=== PATIENT | female | born 1975 | race Caucasian/White ===

== ENCOUNTER 2016-05-28 06:01 | Emergency (ER) | payer OTHER ==
--- NOTE | 2016-05-28 07:09 | ED CLINICAL REPORT ---
Clinical Report - Physicians/Mid Levels [facility] [address] [place] [address] 05/28/2016 6:02 Patient: RALPH LIVINGSTON Arrived- By private vehicle. Historian- patient. HISTORY OF PRESENT ILLNESS Chief Complaint: (abscess to both shoulders). This started past several days and is still present (worsening). It was gradual in onset and has been constant but is not gone now. It is described as painful. It has been located on the right upper extremity and left upper extremity. Cause has been identified (Hx recreational drug use). Similar symptoms previously: Many times. Recent medical care: Not recently seen/assessed. REVIEW OF SYSTEMS No fever, chills, difficulty breathing or chest pain. All systems otherwise negative, except as recorded above. PAST HISTORY See nurses notes. Tetanus immunization status is up-to-date. Problems: no known problems. Additional Surgeries: no known surgeries. Medications: Tylenol Oral 500mg, 4x a day as needed. Ibuprofen Oral 600 mg, 4x a day. Allergies: No Known Drug Allergy. SOCIAL HISTORY Smoker- current status unknown. History of drug use. No alcohol use. Is a local resident. ADDITIONAL NOTES The nursing notes have been reviewed. PHYSICAL EXAM Vital Signs: 05/28/2016 06:21 BP: 133/77. HR: 75. RR: 16. O2 saturation: 100%. Temp: 98.3 F. Pain level now: 8/10. Blood pressure normal. Oxygen saturation normal. Appearance: Alert. Oriented X3. No acute distress. Eyes: Pupils equal, round and reactive to light. Conjunctivae and eyelids normal. ENT: Ears normal. Nose normal. Pharynx normal. Neck: Neck supple. CVS: Normal heart rate and rhythm. Heart sounds normal. Respiratory: No respiratory distress. Breath sounds normal. Chest nontender. Abdomen: Nontender. No organomegaly. Skin: (bilateral abscesses to the shoulders. Right abscess it has a 1 cm area of fluctuance and area of induration that measures approximately 6 cm at the widest diameter. Overlying area of cellulitis. Does not extend more than 3 cm past the border of induration. There is also a deeper abscess that is located proximal to this one. Appears to be rather small at approximately 2-3 cm in diameter however it is difficult to palpate because of the depth and likely early nature of the abscess. The left shoulder has a drained abscess with overlying cellulitis. This is outlined with a skin pen. The largest measured diameter is approximately 8 cm. It is irregular shaped. There is no streaking. In both shoulders or no crepitus. No other abnormalities noted. Patient is neurovascularly intact bilaterally. Palpable radial pulses are 2+ and symmetrical to each side. Compartments are soft. No bony abnormalities. No lymphadenopathy noted in the neck. No neck tenderness or difficulty with range of motion.). Extremities: Normal external inspection. Extremities nontender. PROGRESS AND PROCEDURES Incision & Drainage of Abscess: The risks of the procedure, benefits and alternatives were explained. Anesthesia provided using 1% lidocaine with epi. Skin cleansed with Betadine. The abscess was incised with a #11 surgical blade. A large amount of pus was drained. Cavity was irrigated with saline and packed with gauze. A dressing was applied. Estimated blood loss: 3 mL. ( no compilations. Patient tolerated procedure well.). Course of Care: The patient is a pleasant 40-year-old female with past medical history significant for IV drug u No evidence of necrotizing fasciitis. No neurovascular compromise. Verbally discussed with patient treatment plan. Patient is agreeable to bedside incision and drainage. Please see procedure note for further details. Patient does not have any signs of systemic involvement. And buttocks provided for cellulitis. Patient tolerated procedure well. No acute abnormalities noted. Patient instructed to have her wound rechecked in 24-48 hours. No other abnormalities noted. Patient continues to be nontoxic and in no acute distress. I discussed with the patient workup, diagnosis, home care, follow-up, and return precautions. All questions have been answered. The patient expressed understanding of these instructions and was agreeable to them. Do not feel patient needs to be admitted to the hospital require further emergency department workup/evaluation. Disposition: Discharged. Condition: good. CLINICAL IMPRESSION 05/28/2016 06:21 BP: 133/77. HR: 75. RR: 16. O2 saturation: 100%. Temp: 98.3 F. Pain level now: 8/10. Blood pressure normal. Oxygen saturation normal. Multiple deep abscesses to the right upper extremity and left upper extremity. Cellulitis of the right shoulder and left shoulder. INSTRUCTIONS (Wound needs to be rechecked in 24 - 48 hours). Warnings: GENERAL WARNINGS: Return or contact your physician immediately if your condition worsens or changes unexpectedly, if not improving as expected, or if other problems arise. Specifically return if pain, vomiting, bleeding, breathing difficulty or fever. Your Current Medications: CONTINUE TAKING THE FOLLOWING MEDICATIONS: Ibuprofen Oral : 600 mg 4x a day. Tylenol Oral : 500mg 4x a day, prn. Prescription Medications: Bactrim DS 800 mg / 160 mg: take 1 tablet orally every 12 hours for 10 days. Substitution is permissible. (Disp 20 tabs) Keflex 500 mg: take 1 capsule orally every 8 hours for 10 days. No refill. Substitution is permissible. (Disp 30 caps) Follow-up: Return to the emergency department as needed. Follow up with your doctor in two days. Reason for referral: recheck today's concerns. Summary of care provided to patient via paper. Screening today revealed the patient's blood pressure to be in the normal range. The patient should follow up with a primary care provider for blood pressure management. Understanding of the discharge instructions verbalized by patient. [facility] with: [facility], , , [facility], [address] [place] [address] [id number], [place], [id number] Follow up in two days. Reason for referral: recheck today's concerns. Summary of care provided to patient via paper. (Electronically signed by Jerome Turner Dr. 06/01/2016 11:33)
--- NOTE | 2016-05-28 07:09 | ED ORDER SUMMARY ---
..... Patient: RALPH LIVINGSTON OrderSheet [facility] VisitID: [id number] [address] [place] [address] 40y, F Registration Date/Time: 05/28/2016 ORDER SHEET Weight: 68.0 kg (stated) Allergies: No Known Drug Allergy GENERAL ORDERS: MEDICATION ORDERS: Keflex PO 500 mg (NOW) (07:05/28/2016 Mark Grossman) (7:13 LWhalen R.N.) Bactrim DS PO (Tablet 800-160 mg) 1 tab (NOW) (07:05/28/2016 Mark Grossman) (7:13 LWhalshannon R.N.) IV FLUIDS: ORDER SHEET NOTES: [Electronically signed by Therese Guthrie R.N. (18:29 05/29/2016)] [Electronically signed by Jerome Turner Dr. (11:33 06/01/2016)] [Electronically locked/signed by Therese Guthrie R.N. (18:29 05/29/2016)]
--- NOTE | 2016-05-28 07:09 | ED ORDER SUMMARY ---
..... Patient: RALPH LIVINGSTON OrderSheet [facility] VisitID: [id number] [address] [place] [address] 40y, F Registration Date/Time: 05/28/2016 ORDER SHEET Weight: 68.0 kg (stated) Allergies: No Known Drug Allergy GENERAL ORDERS: MEDICATION ORDERS: Keflex PO 500 mg (NOW) (07:05/28/2016 Mark Grossman) (7:13 LWhalen R.N.) Bactrim DS PO (Tablet 800-160 mg) 1 tab (NOW) (07:05/28/2016 Mark Grossman) (7:13 LWhalshannon R.N.) IV FLUIDS: ORDER SHEET NOTES: [Electronically signed by Therese Guthrie R.N. (18:29 05/29/2016)] [Electronically signed by Jerome Turner Dr. (11:33 06/01/2016)] [Electronically locked/signed by Therese Guthrie R.N. (18:29 05/29/2016)]
--- NOTE | 2016-05-28 07:09 | ED NURSING NOTES ---
Clinical Report - Nurses Merged With [facility] [address] [place] [address] 05/28/2016 6:02 Patient: RALPH LIVINGSTON TRIAGE Triage time 06:22. Acuity: LEVEL 4. Chief Complaint: Multiple abscesses. 06:27. Alert. SEPSIS SCREEN: Sepsis Screen. Negative (no infection suspected/documented). --06:27 Juan Luis Tiwari R.N. 06:21 05/28/16. BP: 133/77. HR: 75. RR: 16. O2 saturation: 100% on room air. Temp: 98.3 F. Pain level now: 11/17. --06:27 Juan Luis Tiwari R.N. Weight: 68 kg stated. Height/Length: 67.5 inches Per Patient. BMI: 23.1. --06:26 Juan Luis Tiwrai R.N. Medications Ibuprofen Oral 600 mg, 4x a day. --06:24 Juan Luis Tiwari R.N. Tylenol Oral 500mg, 4x a day as needed. --06:24 Juan Luis Tiwari R.N. Medication/allergy information source: the patient. --06:27 Juan Luis Tiwari R.N. Allergies No Known Drug Allergy. --06:24 Juan Luis Tiwari R.N. History Arrived by private vehicle. Historian: patient. Accompanied by friend. Primary physician ([facility]). Reported as located on the right shoulder and left shoulder. Onset. (3 - 4 days ago). Treatment PROFESSOR OF COUNSELING: None. PAST MEDICAL HX: Immunizations: up-to-date. Last normal menstrual period- 2 weeks ago. SOCIAL HX: Current every day heavy tobacco smoker- 1 pack per day. Occasional alcohol use. History of drug use: heroin. (daily, states " I quit 2 days ago"). No infectious disease exposure. ABUSE ASSESSMENT: No report of abuse. FALL RISK ASSESSMENT: Fall risk assessment completed. No fall risk identified. NUTRITIONAL RISK ASSESSMENT: The nutritional risk assessment revealed no deficiencies. FUNCTIONAL ASSESSMENT: Functional assessment: no impairments noted. LEARNING NEEDS ASSESSMENT: The learning needs assessment revealed no barriers. SKIN INTEGRITY ASSESSMENT: Skin integrity risk assessment completed. No skin integrity risk identified. --06:27 Juan Luis Tiwari R.N. PROBLEMS: no known problems. ADDITIONAL SURGERIES: no known surgeries. Interventions ID band on patient. To treatment room. --06:27 Juan Luis Tiwari R.N. PHYSICAL ASSESSMENT 06:29. Ambulatory to room. Patient gowned. GENERAL / NEURO / PSYCH: Alert. Oriented X 4. HEENT: Mucous membranes are pink. RESPIRATORY: Respirations not labored. SKIN: Skin is warm and dry. Multiple skin lesions on the right shoulder and left shoulder. --06:29 Juan Luis Tiwari R.N. NURSING PROGRESS NOTES 06:29. Head of bed elevated. Two patient identifiers checked. Call light placed in reach. Bed placed in lowest position. Brakes of bed on. Patient ready for evaluation- chart flagged. --06:29 Juan Luis Tiwari R.N. 07:13 05/28/2016 Keflex (Cephalexin) PO Capsules 500 mg given. Allergies verified and confirmed 5 rights. --07:13 Therese Guthrie R.N. 07:13 05/28/2016 Bactrim DS (Sulfamethoxazole-TMP DS) PO Tablets 1 tab given. Allergies verified and confirmed 5 rights. --07:13 Therese Guthrie R.N. DISPOSITION / DISCHARGE Departure time: 07:17 May 28 2016. Condition at departure: improved. No learning barriers present. Discharge instructions provided and reviewed with the patient. Reviewed warnings. Reviewed medication(s). Treatments reviewed. Reviewed referrals. Patient verbalized understanding. Written instructions provided in Botswanan. The patient was discharged home and accompanied by opal miner. She left the Emergency Department ambulatory and via private vehicle. Peace Officer driving. --07:17 Therese Guthrie R.N. 07:16 05/28/16. BP: 129/76. HR: 66. RR: 18. O2 saturation: 100%. Temp: 98.6 F. Pain level now 4/10. --07:17 Therese Guthrie R.N. Locked/Released at 05/29/2016 18:29 by Therese Guthrie R.N.
--- NOTE | 2016-05-28 07:09 | ED NURSING NOTES ---
Clinical Report - Nurses [facility] [address] [place] [address] 05/28/2016 6:02 Patient: RALPH LIVINGSTON TRIAGE Triage time 06:22. Acuity: LEVEL 4. Chief Complaint: Multiple abscesses. 06:27. Alert. SEPSIS SCREEN: Sepsis Screen. Negative (no infection suspected/documented). --06:27 Juan Luis Tiwari R.N. 06:21 05/28/16. BP: 133/77. HR: 75. RR: 16. O2 saturation: 100% on room air. Temp: 98.3 F. Pain level now: 11/17. --06:27 Juan Luis Tiwari R.N. Weight: 68 kg stated. Height/Length: 67.5 inches Per Patient. BMI: 23.1. --06:26 Juan Luis Tiwari R.N. Medications Ibuprofen Oral 600 mg, 4x a day. --06:24 Juan Luis Tiwari R.N. Tylenol Oral 500mg, 4x a day as needed. --06:24 Juan Luis Tiwari R.N. Medication/allergy information source: the patient. --06:27 Juan Luis Tiwari R.N. Allergies No Known Drug Allergy. --06:24 Juan Luis Tiwari R.N. History Arrived by private vehicle. Historian: patient. Accompanied by friend. Primary physician ([facility]). Reported as located on the right shoulder and left shoulder. Onset. (3 - 4 days ago). Treatment CERTIFIED INDUSTRIAL HYGIENIST: None. PAST MEDICAL HX: Immunizations: up-to-date. Last normal menstrual period- 2 weeks ago. SOCIAL HX: Current every day heavy tobacco smoker- 1 pack per day. Occasional alcohol use. History of drug use: heroin. (daily, states " I quit 2 days ago"). No infectious disease exposure. ABUSE ASSESSMENT: No report of abuse. FALL RISK ASSESSMENT: Fall risk assessment completed. No fall risk identified. NUTRITIONAL RISK ASSESSMENT: The nutritional risk assessment revealed no deficiencies. FUNCTIONAL ASSESSMENT: Functional assessment: no impairments noted. LEARNING NEEDS ASSESSMENT: The learning needs assessment revealed no barriers. SKIN INTEGRITY ASSESSMENT: Skin integrity risk assessment completed. No skin integrity risk identified. --06:27 Juan Luis Tiwari R.N. PROBLEMS: no known problems. ADDITIONAL SURGERIES: no known surgeries. Interventions ID band on patient. To treatment room. --06:27 Juan Luis Tiwari R.N. PHYSICAL ASSESSMENT 06:29. Ambulatory to room. Patient gowned. GENERAL / NEURO / PSYCH: Alert. Oriented X 4. HEENT: Mucous membranes are pink. RESPIRATORY: Respirations not labored. SKIN: Skin is warm and dry. Multiple skin lesions on the right shoulder and left shoulder. --06:29 Juan Luis Tiwari R.N. NURSING PROGRESS NOTES 06:29. Head of bed elevated. Two patient identifiers checked. Call light placed in reach. Bed placed in lowest position. Brakes of bed on. Patient ready for evaluation- chart flagged. --06:29 Juan Luis Tiwari R.N. 07:13 05/28/2016 Keflex (Cephalexin) PO Capsules 500 mg given. Allergies verified and confirmed 5 rights. --07:13 Therese Guthrie R.N. 07:13 05/28/2016 Bactrim DS (Sulfamethoxazole-TMP DS) PO Tablets 1 tab given. Allergies verified and confirmed 5 rights. --07:13 Therese Guthrie R.N. DISPOSITION / DISCHARGE Departure time: 07:17 May 28 2016. Condition at departure: improved. No learning barriers present. Discharge instructions provided and reviewed with the patient. Reviewed warnings. Reviewed medication(s). Treatments reviewed. Reviewed referrals. Patient verbalized understanding. Written instructions provided in [place]err[place]ian. The patient was discharged home and accompanied by cylinder checker. She left the Emergency Department ambulatory and via private vehicle. Cmm Technician driving. --07:17 Therese Guthrie R.N. 07:16 05/28/16. BP: 129/76. HR: 66. RR: 18. O2 saturation: 100%. Temp: 98.6 F. Pain level now 4/10. --07:17 Therese Guthrie R.N. Locked/Released at 05/29/2016 18:29 by Therese Guthrie R.N.
--- NOTE | 2016-06-01 11:33 | ED DISCHARGE INSTRUCTIONS ---
Patient: RALPH LIVINGSTON General Instructions [facility] VisitID: [id number] [address] [place], [place] [id number], F Registration Date/Time: 05/28/2016 05/28/2016 06:21 BP: 133/77. HR: 75. RR: 16. O2 saturation: 100%. Temp: 98.3 F. Pain level now: 8/10. Blood pressure normal. Oxygen saturation normal. Multiple deep abscesses to the right upper extremity and left upper extremity. Cellulitis of the right shoulder and left shoulder. INSTRUCTIONS (Wound needs to be rechecked in 24 - 48 hours). Warnings: GENERAL WARNINGS: Return or contact your physician immediately if your condition worsens or changes unexpectedly, if not improving as expected, or if other problems arise. Specifically return if pain, vomiting, bleeding, breathing difficulty or fever. Your Current Medications: CONTINUE TAKING THE FOLLOWING MEDICATIONS: Ibuprofen Oral : 600 mg 4x a day. Tylenol Oral : 500mg 4x a day, prn. Prescription Medications: Bactrim DS 800 mg / 160 mg: take 1 tablet orally every 12 hours for 10 days. Substitution is permissible. (Disp 20 tabs) Keflex 500 mg: take 1 capsule orally every 8 hours for 10 days. No refill. Substitution is permissible. (Disp 30 caps) Follow-up: Return to the emergency department as needed. Follow up with your doctor in two days. Reason for referral: recheck today's concerns. Summary of care provided to patient via paper. Screening today revealed the patient's blood pressure to be in the normal range. The patient should follow up with a primary care provider for blood pressure management. Understanding of the discharge instructions verbalized by patient. Follow-up with: [facility], , , [facility], [address] [place] [address] [id number], [place], [id number] Follow up in two days. Reason for referral: recheck today's concerns. Summary of care provided to patient via paper. ADDITIONAL INFORMATION Abscess [Incision & Drainage] An abscess (sometimes called a boil) occurs when bacteria get trapped under the skin and begin to grow. Pus forms inside the abscess as the body responds to the bacteria. An abscess can occur with an insect bite, ingrown hair, blocked oil gland, pimple, cyst, or puncture wound. Treatment of your abscess has required an incision to drain the pus. If the abscess pocket was large, a gauze packing may have been inserted. This will need to be removed and possibly replaced on your next visit. Antibiotics are not required in the treatment of a simple abscess, unless the infection is spreading into the skin around the wound (known as cellulitis). Healing of the wound will take about one to two weeks depending on the size of the abscess. Healthy tissue will grow from the bottom and sides of the opening until it seals over. Home Care: The wound may drain for the first two days. Cover the wound with a clean dry dressing. If the dressing becomes soaked with blood or pus, change it. If a gauze packing was placed inside the abscess cavity, you may be advised to remove it yourself. You may do this in the shower. Once the packing is removed, you should wash the area in the shower or bath 3 to 4 times a day, until the skin opening has closed. If you were prescribed antibiotics, take them as directed until they are all gone. You may use acetaminophen (Tylenol) or ibuprofen (Motrin, Advil) to control pain, unless another pain medicine was prescribed. [ NOTE: If you have liver disease or ever had a stomach ulcer, talk with your doctor before using these medicines.] Follow Up with your doctor as advised by our staff. If a gauze packing was inserted in your wound, it should be removed in 1-2 days. Check your wound every day for the signs of worsening infection listed below. Get Prompt Medical Attention if any of the following occur: Increasing redness or swelling Red streaks in the skin leading away from the wound Increasing local pain or swelling Continued pus draining from the wound two days after treatment Fever of 100.4F (38C) or higher, or as directed by your healthcare provider Cellulitis You have an infection of the skin known as cellulitis. This usually starts with a scrape, cut, insect bite, blister or other opening in the skin which becomes infected. This is a serious condition. It must be watched closely to be sure the infection is not spreading. With antibiotic treatment, the size of the red area will gradually shrink in size until the skin returns to normal. This will take 7-10 days. The red area should never increase in size once the antibiotic medicine has been started. Occasionally, an infection will be resistant to one antibiotic and another one will have to be used. Home Care: 1) Limit the use of the affected part, since excess movement can cause the infection to spread. 2) If the infection is on your leg, walk as little as possible during the first few days of the treatment. Keep your leg elevated while sitting. This will reduce swelling. 3) Take all of the antibiotic medicine exactly as directed until it is gone. Be careful not to miss any doses, especially during the first seven days. Follow Up with your doctor or this facility as directed. Check the infected area daily for the warning signs listed below. Get Prompt Medical Attention if any of the following occur: -- Spreading area of redness -- Increasing swelling or pain -- Appearance of pus or drainage -- Fever over 100.4 F (38.0 C) oral, or over 101.4 F (38.6 C) rectal, after two days on antibiotics Sulfamethoxazole, Trimethoprim Oral tablet What is this medicine? SULFAMETHOXAZOLE; TRIMETHOPRIM or SMX-TMP (suhl fuh meth OK gloria zohl; trye METH oh prim) is a combination of a sulfonamide antibiotic and a second antibiotic, trimethoprim. It is used to treat or prevent certain kinds of bacterial infections. It will not work for colds, flu, or other viral infections. How should I use this medicine? Take this medicine by mouth with a full glass of water. Follow the directions on the prescription label. Take your medicine at regular intervals. Do not take it more often than directed. Do not skip doses or stop your medicine early. Talk to your etched circuit processor regarding the use of this medicine in children. Special care may be needed. This medicine has been used in children as young as 2 months of age. What side effects may I notice from receiving this medicine? Side effects that you should report to your doctor or health child care coordinator as soon as possible: allergic reactions like skin rash or hives, swelling of the face, lips, or tongue breathing problems fever or chills, sore throat irregular heartbeat, chest pain joint or muscle pain pain or difficulty passing urine red pinpoint spots on skin redness, blistering, peeling or loosening of the skin, including inside the mouth unusual bleeding or bruising unusually weak or tired yellowing of the eyes or skin Side effects that usually do not require medical attention (report to your doctor or health child care coordinator if they continue or are bothersome): diarrhea dizziness headache loss of appetite nausea, vomiting nervousness What may interact with this medicine? Do not take this medicine with any of the following medications: aminobenzoate potassium dofetilide metronidazole This medicine may also interact with the following medications: ADAN inhibitors like benazepril, enalapril, lisinopril, and ramipril cyclosporine digoxin diuretics indomethacin medicines for diabetes methenamine methotrexate phenytoin potassium supplements pyrimethamine sulfinpyrazone tricyclic antidepressants warfarin What if I miss a dose? If you miss a dose, take it as soon as you can. If it is almost time for your next dose, take only that dose. Do not take double or extra doses. Where should I keep my medicine? Keep out of the reach of children. Store at room temperature between 20 to 25 degrees C (68 to 77 degrees F). Protect from light. Throw away any unused medicine after the expiration date. What should I tell my health care provider before I take this medicine? They need to know if you have any of these conditions: anemia asthma being treated with anticonvulsants if you frequently drink alcohol containing drinks kidney disease liver disease low level of folic acid or [id number] dehydrogenase poor nutrition or malabsorption porphyria severe allergies thyroid disorder an unusual or allergic reaction to sulfamethoxazole, trimethoprim, sulfa drugs, other medicines, foods, dyes, or preservatives or trying to get breast-feeding What should I watch for while using this medicine? Tell your doctor or health child care coordinator if your symptoms do not improve. Drink several glasses of water a day to reduce the risk of kidney problems. Do not treat diarrhea with over the counter products. Contact your doctor if you have diarrhea that lasts more than 2 days or if it is severe and watery. This medicine can make you more sensitive to the sun. Keep out of the sun. If you cannot avoid being in the sun, wear protective clothing and use a sunscreen. Do not use sun lamps or tanning beds/booths. Cephalexin Monohydrate Oral tablet What is this medicine? CEPHALEXIN (sef a MIRIAM in) is a cephalosporin antibiotic. It is used to treat certain kinds of bacterial infections It will not work for colds, flu, or other viral infections. How should I use this medicine? Take this medicine by mouth with a full glass of water. Follow the directions on the prescription label. This medicine can be taken with or without food. Take your medicine at regular intervals. Do not take your medicine more often than directed. Take all of your medicine as directed even if you think you are better. Do not skip doses or stop your medicine early. Talk to your etched circuit processor regarding the use of this medicine in children. While this drug may be prescribed for selected conditions, precautions do apply. What side effects may I notice from receiving this medicine? Side effects that you should report to your doctor or health child care coordinator as soon as possible: allergic reactions like skin rash, itching or hives, swelling of the face, lips, or tongue breathing problems pain or trouble passing urine redness, blistering, peeling or loosening of the skin, including inside the mouth severe or watery diarrhea unusually weak or tired yellowing of the eyes, skin Side effects that usually do not require medical attention (report to your doctor or health child care coordinator if they continue or are bothersome): gas or heartburn genital or anal irritation headache joint or muscle pain nausea, vomiting What may interact with this medicine? probenecid some other antibiotics What if I miss a dose? If you miss a dose, take it as soon as you can. If it is almost time for your next dose, take only that dose. Do not take double or extra doses. There should be at least 4 to 6 hours between doses. Where should I keep my medicine? Keep out of the reach of children. Store at room temperature between 59 and 86 degrees F (15 and 30 degrees C). Throw away any unused medicine after the expiration date. What should I tell my health care provider before I take this medicine? They need to know if you have any of these conditions: kidney disease stomach or intestine problems, especially colitis an unusual or allergic reaction to cephalexin, other cephalosporins, penicillins, other antibiotics, medicines, foods, dyes or preservatives or trying to get breast-feeding What should I watch for while using this medicine? Tell your doctor or health child care coordinator if your symptoms do not begin to improve in a few days. Do not treat diarrhea with over the counter products. Contact your doctor if you have diarrhea that lasts more than 2 days or if it is severe and watery. If you have diabetes, you may get a false-positive result for sugar in your urine. Check with your doctor or health child care coordinator. You have been given the following additional information: Abscess, Incision And Drainage Cellulitis Sulfamethoxazole, Trimethoprim Oral tablet Cephalexin Monohydrate Oral tablet (Electronically signed by Jerome Turner Dr. 06/01/2016 11:33)
--- NOTE | 2016-06-01 11:33 | ED DISCHARGE INSTRUCTIONS ---
Patient: RALPH LIVINGSTON General Instructions [facility] VisitID: [id number] [address] [place], [place] [id number] 40y, F Registration Date/Time: 05/28/2016 05/28/2016 06:21 BP: 133/77. HR: 75. RR: 16. O2 saturation: 100%. Temp: 98.3 F. Pain level now: 8/10. Blood pressure normal. Oxygen saturation normal. Multiple deep abscesses to the right upper extremity and left upper extremity. Cellulitis of the right shoulder and left shoulder. INSTRUCTIONS (Wound needs to be rechecked in 24 - 48 hours). Warnings: GENERAL WARNINGS: Return or contact your physician immediately if your condition worsens or changes unexpectedly, if not improving as expected, or if other problems arise. Specifically return if pain, vomiting, bleeding, breathing difficulty or fever. Your Current Medications: CONTINUE TAKING THE FOLLOWING MEDICATIONS: Ibuprofen Oral : 600 mg 4x a day. Tylenol Oral : 500mg 4x a day, prn. Prescription Medications: Bactrim DS 800 mg / 160 mg: take 1 tablet orally every 12 hours for 10 days. Substitution is permissible. (Disp 20 tabs) Keflex 500 mg: take 1 capsule orally every 8 hours for 10 days. No refill. Substitution is permissible. (Disp 30 caps) Follow-up: Return to the emergency department as needed. Follow up with your doctor in two days. Reason for referral: recheck today's concerns. Summary of care provided to patient via paper. Screening today revealed the patient's blood pressure to be in the normal range. The patient should follow up with a primary care provider for blood pressure management. Understanding of the discharge instructions verbalized by patient. Follow-up with: [facility], , , [facility], [address] [place] [address] [address], [place], [address] Follow up in two days. Reason for referral: recheck today's concerns. Summary of care provided to patient via paper. ADDITIONAL INFORMATION Abscess [Incision & Drainage] An abscess (sometimes called a boil) occurs when bacteria get trapped under the skin and begin to grow. Pus forms inside the abscess as the body responds to the bacteria. An abscess can occur with an insect bite, ingrown hair, blocked oil gland, pimple, cyst, or puncture wound. Treatment of your abscess has required an incision to drain the pus. If the abscess pocket was large, a gauze packing may have been inserted. This will need to be removed and possibly replaced on your next visit. Antibiotics are not required in the treatment of a simple abscess, unless the infection is spreading into the skin around the wound (known as cellulitis). Healing of the wound will take about one to two weeks depending on the size of the abscess. Healthy tissue will grow from the bottom and sides of the opening until it seals over. Home Care: The wound may drain for the first two days. Cover the wound with a clean dry dressing. If the dressing becomes soaked with blood or pus, change it. If a gauze packing was placed inside the abscess cavity, you may be advised to remove it yourself. You may do this in the shower. Once the packing is removed, you should wash the area in the shower or bath 3 to 4 times a day, until the skin opening has closed. If you were prescribed antibiotics, take them as directed until they are all gone. You may use acetaminophen (Tylenol) or ibuprofen (Motrin, Advil) to control pain, unless another pain medicine was prescribed. [ NOTE: If you have liver disease or ever had a stomach ulcer, talk with your doctor before using these medicines.] Follow Up with your doctor as advised by our staff. If a gauze packing was inserted in your wound, it should be removed in 1-2 days. Check your wound every day for the signs of worsening infection listed below. Get Prompt Medical Attention if any of the following occur: Increasing redness or swelling Red streaks in the skin leading away from the wound Increasing local pain or swelling Continued pus draining from the wound two days after treatment Fever of 100.4F (38C) or higher, or as directed by your healthcare provider Cellulitis You have an infection of the skin known as cellulitis. This usually starts with a scrape, cut, insect bite, blister or other opening in the skin which becomes infected. This is a serious condition. It must be watched closely to be sure the infection is not spreading. With antibiotic treatment, the size of the red area will gradually shrink in size until the skin returns to normal. This will take 7-10 days. The red area should never increase in size once the antibiotic medicine has been started. Occasionally, an infection will be resistant to one antibiotic and another one will have to be used. Home Care: 1) Limit the use of the affected part, since excess movement can cause the infection to spread. 2) If the infection is on your leg, walk as little as possible during the first few days of the treatment. Keep your leg elevated while sitting. This will reduce swelling. 3) Take all of the antibiotic medicine exactly as directed until it is gone. Be careful not to miss any doses, especially during the first seven days. Follow Up with your doctor or this facility as directed. Check the infected area daily for the warning signs listed below. Get Prompt Medical Attention if any of the following occur: -- Spreading area of redness -- Increasing swelling or pain -- Appearance of pus or drainage -- Fever over 100.4 F (38.0 C) oral, or over 101.4 F (38.6 C) rectal, after two days on antibiotics Sulfamethoxazole, Trimethoprim Oral tablet What is this medicine? SULFAMETHOXAZOLE; TRIMETHOPRIM or SMX-TMP (suhl fuh meth OK gloria zohl; trye METH oh prim) is a combination of a sulfonamide antibiotic and a second antibiotic, trimethoprim. It is used to treat or prevent certain kinds of bacterial infections. It will not work for colds, flu, or other viral infections. How should I use this medicine? Take this medicine by mouth with a full glass of water. Follow the directions on the prescription label. Take your medicine at regular intervals. Do not take it more often than directed. Do not skip doses or stop your medicine early. Talk to your ship cleaner regarding the use of this medicine in children. Special care may be needed. This medicine has been used in children as young as 2 months of age. What side effects may I notice from receiving this medicine? Side effects that you should report to your doctor or health wound care specialist as soon as possible: allergic reactions like skin rash or hives, swelling of the face, lips, or tongue breathing problems fever or chills, sore throat irregular heartbeat, chest pain joint or muscle pain pain or difficulty passing urine red pinpoint spots on skin redness, blistering, peeling or loosening of the skin, including inside the mouth unusual bleeding or bruising unusually weak or tired yellowing of the eyes or skin Side effects that usually do not require medical attention (report to your doctor or health wound care specialist if they continue or are bothersome): diarrhea dizziness headache loss of appetite nausea, vomiting nervousness What may interact with this medicine? Do not take this medicine with any of the following medications: aminobenzoate potassium dofetilide metronidazole This medicine may also interact with the following medications: ADAN inhibitors like benazepril, enalapril, lisinopril, and ramipril cyclosporine digoxin diuretics indomethacin medicines for diabetes methenamine methotrexate phenytoin potassium supplements pyrimethamine sulfinpyrazone tricyclic antidepressants warfarin What if I miss a dose? If you miss a dose, take it as soon as you can. If it is almost time for your next dose, take only that dose. Do not take double or extra doses. Where should I keep my medicine? Keep out of the reach of children. Store at room temperature between 20 to 25 degrees C (68 to 77 degrees F). Protect from light. Throw away any unused medicine after the expiration date. What should I tell my health care provider before I take this medicine? They need to know if you have any of these conditions: anemia asthma being treated with anticonvulsants if you frequently drink alcohol containing drinks kidney disease liver disease low level of folic acid or [id number] dehydrogenase poor nutrition or malabsorption porphyria severe allergies thyroid disorder an unusual or allergic reaction to sulfamethoxazole, trimethoprim, sulfa drugs, other medicines, foods, dyes, or preservatives or trying to get breast-feeding What should I watch for while using this medicine? Tell your doctor or health wound care specialist if your symptoms do not improve. Drink several glasses of water a day to reduce the risk of kidney problems. Do not treat diarrhea with over the counter products. Contact your doctor if you have diarrhea that lasts more than 2 days or if it is severe and watery. This medicine can make you more sensitive to the sun. Keep out of the sun. If you cannot avoid being in the sun, wear protective clothing and use a sunscreen. Do not use sun lamps or tanning beds/booths. Cephalexin Monohydrate Oral tablet What is this medicine? CEPHALEXIN (sef a MIRIAM in) is a cephalosporin antibiotic. It is used to treat certain kinds of bacterial infections It will not work for colds, flu, or other viral infections. How should I use this medicine? Take this medicine by mouth with a full glass of water. Follow the directions on the prescription label. This medicine can be taken with or without food. Take your medicine at regular intervals. Do not take your medicine more often than directed. Take all of your medicine as directed even if you think you are better. Do not skip doses or stop your medicine early. Talk to your ship cleaner regarding the use of this medicine in children. While this drug may be prescribed for selected conditions, precautions do apply. What side effects may I notice from receiving this medicine? Side effects that you should report to your doctor or health wound care specialist as soon as possible: allergic reactions like skin rash, itching or hives, swelling of the face, lips, or tongue breathing problems pain or trouble passing urine redness, blistering, peeling or loosening of the skin, including inside the mouth severe or watery diarrhea unusually weak or tired yellowing of the eyes, skin Side effects that usually do not require medical attention (report to your doctor or health wound care specialist if they continue or are bothersome): gas or heartburn genital or anal irritation headache joint or muscle pain nausea, vomiting What may interact with this medicine? probenecid some other antibiotics What if I miss a dose? If you miss a dose, take it as soon as you can. If it is almost time for your next dose, take only that dose. Do not take double or extra doses. There should be at least 4 to 6 hours between doses. Where should I keep my medicine? Keep out of the reach of children. Store at room temperature between 59 and 86 degrees F (15 and 30 degrees C). Throw away any unused medicine after the expiration date. What should I tell my health care provider before I take this medicine? They need to know if you have any of these conditions: kidney disease stomach or intestine problems, especially colitis an unusual or allergic reaction to cephalexin, other cephalosporins, penicillins, other antibiotics, medicines, foods, dyes or preservatives or trying to get breast-feeding What should I watch for while using this medicine? Tell your doctor or health wound care specialist if your symptoms do not begin to improve in a few days. Do not treat diarrhea with over the counter products. Contact your doctor if you have diarrhea that lasts more than 2 days or if it is severe and watery. If you have diabetes, you may get a false-positive result for sugar in your urine. Check with your doctor or health wound care specialist. You have been given the following additional information: Abscess, Incision And Drainage Cellulitis Sulfamethoxazole, Trimethoprim Oral tablet Cephalexin Monohydrate Oral tablet (Electronically signed by Jerome Turner Dr. 06/01/2016 11:33)
--- NOTE | 2016-06-01 11:34 | ED MAR SUMMARY ---
..... Medication Administration Record [facility] [address] [place] [address] Patient: RALPH LIVINGSTON Visit ID: [id number] 40y, F Weight: 68.0 kg Height/Length: 67.5 in BMI: 23.1 ALLERGIES: No Known Drug Allergy Given 07:05/28/2016 Therese Guthrie, RAnneliseN. Medication Administered: KEFLEX [PO] (CEPHALEXIN), Dose: 500 mg Capsules PO. Medication Ordered: Keflex PO 500 mg (NOW). Given 07:05/28/2016 Therese Guthrie, R.N. Medication Administered: BACTRIM DS [PO] (SULFAMETHOXAZOLE-TMP DS), Dose: 1 tab Tablets PO. Medication Ordered: Bactrim DS PO (Tablet 800-160 mg) 1 tab (NOW).
--- NOTE | 2016-06-01 11:34 | ED MAR SUMMARY ---
..... Medication Administration Record [facility] [address] [place] [address] Patient: RALPH LIVINGSTON Visit ID: [id number] 40y, F Weight: 68.0 kg Height/Length: 67.5 in BMI: 23.1 ALLERGIES: No Known Drug Allergy Given 07:05/28/2016 Therese Guthrie, RAnneliseN. Medication Administered: KEFLEX [PO] (CEPHALEXIN), Dose: 500 mg Capsules PO. Medication Ordered: Keflex PO 500 mg (NOW). Given 07:05/28/2016 Therese Guthrie, R.N. Medication Administered: BACTRIM DS [PO] (SULFAMETHOXAZOLE-TMP DS), Dose: 1 tab Tablets PO. Medication Ordered: Bactrim DS PO (Tablet 800-160 mg) 1 tab (NOW).
--- NOTE | 2016-06-01 11:34 | ED MED RECONCILIATION SUMMARY ---
Patient: RALPH LIVINGSTON Medication Reconciliation Report [facility] VisitID: [id number] [address] [place] [address] 40y, F Registration Date/Time: 05/28/2016 Weight: 68.0 kg Height/Length: (not available) BMI: 23.1 ALLERGIES: No Known Drug Allergy The patient's Home Medications are listed below: CONTINUE TAKING THE FOLLOWING MEDICATIONS: Ibuprofen Oral 600 mg, 4x a day Tylenol Oral 500mg, 4x a day The source(s) of the original Home Medication information: patient The following Medications were given to the patient in the Emergency Department: Keflex [PO] PO 500 mg, administered: 05/28/2016 7:13:00 AM Bactrim DS [PO] PO 1 tab, administered: 05/28/2016 7:13:00 AM The following Medications were prescribed to the patient: Bactrim DS 800 mg / 160 mg: take 1 tablet orally every 12 hours for 10 days. Substitution is permissible.(Disp 20 tabs) -- Jerome Turner Dr. Keflex 500 mg: take 1 capsule orally every 8 hours for 10 days. No refill. Substitution is permissible.(Disp 30 caps) -- Jerome Turner Dr.
--- NOTE | 2016-06-01 11:34 | ED MED RECONCILIATION SUMMARY ---
Patient: RALPH LIVINGSTON Medication Reconciliation Report [facility] VisitID: [id number] [address] [place] [address] 40y, F Registration Date/Time: 05/28/2016 Weight: 68.0 kg Height/Length: (not available) BMI: 23.1 ALLERGIES: No Known Drug Allergy The patient's Home Medications are listed below: CONTINUE TAKING THE FOLLOWING MEDICATIONS: Ibuprofen Oral 600 mg, 4x a day Tylenol Oral 500mg, 4x a day The source(s) of the original Home Medication information: patient The following Medications were given to the patient in the Emergency Department: Keflex [PO] PO 500 mg, administered: 05/28/2016 7:13:00 AM Bactrim DS [PO] PO 1 tab, administered: 05/28/2016 7:13:00 AM The following Medications were prescribed to the patient: Bactrim DS 800 mg / 160 mg: take 1 tablet orally every 12 hours for 10 days. Substitution is permissible.(Disp 20 tabs) -- Jerome Turner Dr. Keflex 500 mg: take 1 capsule orally every 8 hours for 10 days. No refill. Substitution is permissible.(Disp 30 caps) -- Jerome Turner Dr.
== END 2016-05-28 07:20 | disposition home or self-care (01) ==
LOC: ED SRH 06:01
DX: L03.114 Cellulitis of left upper limb (principal); L03.113 Cellulitis of right upper limb; L02.414 Cutaneous abscess of left upper limb; L02.413 Cutaneous abscess of right upper limb

== ENCOUNTER 2016-06-04 10:29 | Emergency (ER) | payer OTHER ==
--- NOTE | 2016-06-04 11:41 | ED ORDER SUMMARY ---
..... Patient: RALPH LIVINGSTON OrderSheet [facility] VisitID: [id number] [address] [place] [address] 40y, F Registration Date/Time: 06/04/2016 ORDER SHEET Weight: 63.5 kg (stated) Allergies: No Known Drug Allergy GENERAL ORDERS: Dress Wounds (right shoulder laceration) (11:37 06/04/2016 Paula MARVIN) (11:51 Abhijit Coon) MEDICATION ORDERS: IV FLUIDS: ORDER SHEET NOTES: [Electronically signed by Jaswinder Avina DO (16:06 06/05/2016)] [Electronically signed by Fabi An R.N. (08:55 06/07/2016)] [Electronically locked/signed by Fabi An R.N. (08:55 06/07/2016)]
--- NOTE | 2016-06-04 11:41 | ED CLINICAL REPORT ---
Clinical Report - Physicians/Mid Levels [facility] [address] [place] [address] 06/04/2016 10:30 Patient: RALPH LIVINGSTON Time Seen: 10:58. Arrived- By private vehicle. Historian- patient. HISTORY OF PRESENT ILLNESS Chief Complaint: TENDER AREA. Is still present. It was gradual in onset and has been waxing/waning. It is described as painful. It has been located on the right shoulder. A cause has been identified (Injection Drug Use). (Pt sent over by [facility] for concerns her packing is still in the right arm from a previous I&D. Had a I&D on the , was suppose to return in 24 hours for removal of packing, no show. Returned instead had it changed. On the , today, the wound healed over and pt presented today for packing to be removed. Concerned the packing is still in place. but unable to be seen by staff at the clinic). Similar symptoms previously: Recent medical care: The patient was seen recently at this facility in the emergency department. Seen for similar symptoms. Diagnosis: abscess. REVIEW OF SYSTEMS No fever, chills, difficulty breathing, nausea or joint pain. No vomiting. PAST HISTORY See nurses notes. PCP: [facility]. Substance abuse (tobacco, heroin). Surgeries: (I&D of abscess). SOCIAL HISTORY Smoker- current status unknown. Occasional alcohol use. History of drug use: heroin. No recent travel. ADDITIONAL NOTES The nursing notes have been reviewed. PHYSICAL EXAM Vital Signs: 06/04/2016 10:39 BP: 127/69. HR: 78. RR: 18. O2 saturation: 100%. Temp: 98.2 F. Appearance: Alert. Oriented X3. No acute distress. Neck: Neck supple. CVS: Normal heart rate and rhythm. Heart sounds normal. Respiratory: No respiratory distress. Breath sounds normal. Skin: Skin warm and dry. No erythema. (Surgical incision on the left shoulder. No pus d/c. Minimal tenderness. No fluctuance.). Extremities: Right shoulder: mild tenderness and subcutaneous 1.0 cm laceration. Limited ROM. Neurovascular intact distally. No foreign body. Neuro: Oriented X 3. No motor deficit. LABS, X-RAYS, AND EKG Pulse Oximetry: 06/04/2016 10:39 O2 saturation: 100%. (FIO2 - room air). Interpretation: normal. PROGRESS AND PROCEDURES Laceration Repair: Location: right shoulder. Length: 1.5cm. Complexity: simple (closed with tissue adhesive). Wound depth/shape- subcutaneous. It does not involve fascia or muscle. No foreign body present. Exam note: no foreign body is seen is direct visualization and disection of subcutaneous tissue. Distal neuro/vascular/tendon status normal. Local anesthesia provided using 0.50% Marcaine. Prepped with Betadine. Wound explored, cleansed and examined to the base in bloodless field. Closure of skin. Skin adhesive used. Post-procedure: she is stable and there are no complications. Bleeding is controlled and neuro-vascular status is intact distal to the wound. Dressing applied. Tetanus immunization up-to-date. Course of Care: After good, direct exploration of the wound, there is no evident foreign body seen or palpated. Imaging is not likely to be helpful. Pt given signs and symptoms to watch gor regarding the very unlikely chance of a nonvusualized fb. Consider MRI if any complications. Patient/family counseled. Old ED records reviewed. Disposition: Discharged. Condition: stable and improved. CLINICAL IMPRESSION Abscess to the right upper extremity. Chronic substance abuse- tobacco (cigarettes), heroin. No intoxication, hallucinations, perceptual disturbances or drug induced psychotic disorder or mood disorder. Single superficial laceration to the right shoulder.No foreign body present. INSTRUCTIONS Do not smoke. Seek medical help to quit smoking. (You may need additional procedures or imaging (nonemergently) as needed if not much better as expected). Warnings: Further evaluation is necessary. INFECTION: Watch for signs of infection (increasing heat and redness, pus-like drainage, swelling, or increased pain). Return or see your doctor if these signs occur. GENERAL WARNINGS: Return or contact your physician immediately if your condition worsens or changes unexpectedly, if not improving as expected, or if other problems arise. Your Current Medications: CONTINUE TAKING THE FOLLOWING MEDICATIONS: Ibuprofen Oral : 600 mg 4x a day. Tylenol Oral : 500mg 4x a day, prn. Follow-up with: [facility], [facility], , [address] [place] [address], [place] [id number] Follow up Monday as scheduled. (Electronically signed by Jaswinder Avina DO 06/05/2016 16:06)
--- NOTE | 2016-06-04 11:41 | ED CLINICAL REPORT ---
Clinical Report - Physicians/Mid Levels [facility] [address] [place] [address] 06/04/2016 10:30 Patient: RALPH LIVINGSTON Time Seen: 10:58. Arrived- By private vehicle. Historian- patient. HISTORY OF PRESENT ILLNESS Chief Complaint: TENDER AREA. Is still present. It was gradual in onset and has been waxing/waning. It is described as painful. It has been located on the right shoulder. A cause has been identified (Injection Drug Use). (Pt sent over by [facility] for concerns her packing is still in the right arm from a previous I&D. Had a I&D on the , was suppose to return in 24 hours for removal of packing, no show. Returned instead had it changed. On the , today, the wound healed over and pt presented today for packing to be removed. Concerned the packing is still in place. but unable to be seen by staff at the clinic). Similar symptoms previously: Recent medical care: The patient was seen recently at this facility in the emergency department. Seen for similar symptoms. Diagnosis: abscess. REVIEW OF SYSTEMS No fever, chills, difficulty breathing, nausea or joint pain. No vomiting. PAST HISTORY See nurses notes. PCP: [facility]. Substance abuse (tobacco, heroin). Surgeries: (I&D of abscess). SOCIAL HISTORY Smoker- current status unknown. Occasional alcohol use. History of drug use: heroin. No recent travel. ADDITIONAL NOTES The nursing notes have been reviewed. PHYSICAL EXAM Vital Signs: 06/04/2016 10:39 BP: 127/69. HR: 78. RR: 18. O2 saturation: 100%. Temp: 98.2 F. Appearance: Alert. Oriented X3. No acute distress. Neck: Neck supple. CVS: Normal heart rate and rhythm. Heart sounds normal. Respiratory: No respiratory distress. Breath sounds normal. Skin: Skin warm and dry. No erythema. (Surgical incision on the left shoulder. No pus d/c. Minimal tenderness. No fluctuance.). Extremities: Right shoulder: mild tenderness and subcutaneous 1.0 cm laceration. Limited ROM. Neurovascular intact distally. No foreign body. Neuro: Oriented X 3. No motor deficit. LABS, X-RAYS, AND EKG Pulse Oximetry: 06/04/2016 10:39 O2 saturation: 100%. (FIO2 - room air). Interpretation: normal. PROGRESS AND PROCEDURES Laceration Repair: Location: right shoulder. Length: 1.5cm. Complexity: simple (closed with tissue adhesive). Wound depth/shape- subcutaneous. It does not involve fascia or muscle. No foreign body present. Exam note: no foreign body is seen is direct visualization and disection of subcutaneous tissue. Distal neuro/vascular/tendon status normal. Local anesthesia provided using 0.50% Marcaine. Prepped with Betadine. Wound explored, cleansed and examined to the base in bloodless field. Closure of skin. Skin adhesive used. Post-procedure: she is stable and there are no complications. Bleeding is controlled and neuro-vascular status is intact distal to the wound. Dressing applied. Tetanus immunization up-to-date. Course of Care: After good, direct exploration of the wound, there is no evident foreign body seen or palpated. Imaging is not likely to be helpful. Pt given signs and symptoms to watch gor regarding the very unlikely chance of a nonvusualized fb. Consider MRI if any complications. Patient/family counseled. Old ED records reviewed. Disposition: Discharged. Condition: stable and improved. CLINICAL IMPRESSION Abscess to the right upper extremity. Chronic substance abuse- tobacco (cigarettes), heroin. No intoxication, hallucinations, perceptual disturbances or drug induced psychotic disorder or mood disorder. Single superficial laceration to the right shoulder.No foreign body present. INSTRUCTIONS Do not smoke. Seek medical help to quit smoking. (You may need additional procedures or imaging (nonemergently) as needed if not much better as expected). Warnings: Further evaluation is necessary. INFECTION: Watch for signs of infection (increasing heat and redness, pus-like drainage, swelling, or increased pain). Return or see your doctor if these signs occur. GENERAL WARNINGS: Return or contact your physician immediately if your condition worsens or changes unexpectedly, if not improving as expected, or if other problems arise. Your Current Medications: CONTINUE TAKING THE FOLLOWING MEDICATIONS: Ibuprofen Oral : 600 mg 4x a day. Tylenol Oral : 500mg 4x a day, prn. Follow-up with: [facility], [facility], , [address] [place] [address], [place] [id number] Follow up Monday as scheduled. (Electronically signed by Jaswinder Avina DO 06/05/2016 16:06)
--- NOTE | 2016-06-04 11:41 | ED NURSING NOTES ---
Clinical Report - [facility] [address] [place] [address] 06/04/2016 10:30 Patient: RALPH LIVINGSTON TRIAGE Triage time 10:39 Jun 04 2016. Acuity: LEVEL 4. Alert. No acute distress. --10:46 Ameena Narveaz R.N. 10:39 06/04/16. BP: 127/69. HR: 78. RR: 18. O2 saturation: 100%. Temp: 98.2 F. Pain level now 0/10. --10:46 Ameena Narvaez R.N. Chief Complaint: SKIN RASH. --11:56 Ameena Narvaez R.N. Weight: 63.5 kg stated. Height/Length: 67 inches Per Patient. BMI: 21.9. --10:38 Ameena Narvaez R.N. Medications Ibuprofen Oral 600 mg, 4x a day. Tylenol Oral 500mg, 4x a day as needed. --10:41 Ameena Narvaez R.N. Allergies No Known Drug Allergy. --10:41 Ameena Narvaez R.N. Medication/allergy information source: the patient. --10:46 Ameena Narvaez R.N. History Arrived by private vehicle. Historian: patient. Accompanied by family. Primary physician (Zach). ( Pt sent over by [facility] for concerns her packing is still in the right arm from a previous I&D. Had a I&D on the , was suppose to return in 24 hours for removal of packing, no show. Returned instead had it changed. On the , today, the wound healed over and pt presented today for packing to be removed. Concerned the packing is still in place. but unable to be seen by staff at the clinic.). Location - right arm. No fever. Treatment AUTOMOBILE ACCESSORIES INSTALLER: None. PAST MEDICAL HX: Immunizations: up-to-date. SOCIAL HX: Heavy tobacco smoker (cigarette)- 1 pack per day. Occasional alcohol use. History of IV drug use: heroin. FALL RISK ASSESSMENT: Fall risk assessment completed. No fall risk identified. NUTRITIONAL RISK ASSESSMENT: The nutritional risk assessment revealed no deficiencies. FUNCTIONAL ASSESSMENT: Functional assessment: no impairments noted. LEARNING NEEDS ASSESSMENT: The learning needs assessment revealed no barriers. SKIN INTEGRITY ASSESSMENT: Skin integrity risk assessment completed. No skin integrity risk identified. --10:46 Ameena Narvaez R.N. PROBLEMS: Cellulitis. Abscess. --10:42 Ameena Narvaez R.N. ADDITIONAL SURGERIES: Incision and drainage of abscess. --10:42 Ameena Narvaez R.N. Interventions ID band on patient. To room. --10:46 Ameena Narvaez R.N. PHYSICAL ASSESSMENT Ambulatory to room. GENERAL / NEURO / PSYCH: The patient does not appear to be in acute distress. CVS: Capillary refill less than 2 seconds. SKIN: Skin is warm and dry. ( open wound, draining clear and scant blood. It is currently numb from previous Tx from Clinic, not painful.). --11:52 Ameena Narvaez R.N. NURSING PROGRESS NOTES ( Dry Dressing applied to the Right Upper Bicep). --11:54 Ameena Narvaez R.N. DISPOSITION / DISCHARGE Departure time: 11:55 Jun 04 2016. Condition at departure: stable. No learning barriers present. Discharge instructions provided and reviewed with the patient. Patient verbalized understanding. Written instructions provided in Nepalese. No medication instructions. The patient was discharged by the physician. She was discharged home and accompanied by reconstructive surgeon. She left the Emergency Department ambulatory. Jewelry Store Manager driving. --11:55 Ameena Narvaez R.N. Locked/Released at 06/07/2016 8:55 by Fabi An R.N.
--- NOTE | 2016-06-04 11:41 | ED ORDER SUMMARY ---
..... Patient: RALPH LIVINGSTON OrderSheet [facility] VisitID: [id number] [address] [place] [address] 40y, F Registration Date/Time: 06/04/2016 ORDER SHEET Weight: 63.5 kg (stated) Allergies: No Known Drug Allergy GENERAL ORDERS: Dress Wounds (right shoulder laceration) (11:37 06/04/2016 Paula MARVIN) (11:51 Abhijit Coon) MEDICATION ORDERS: IV FLUIDS: ORDER SHEET NOTES: [Electronically signed by Jaswinder Avina DO (16:06 06/05/2016)] [Electronically signed by Fabi An R.N. (08:55 06/07/2016)] [Electronically locked/signed by Fabi An R.N. (08:55 06/07/2016)]
--- NOTE | 2016-06-04 11:41 | ED NURSING NOTES ---
Clinical Report - [facility] [address] [place] [address] 06/04/2016 10:30 Patient: RALPH LIVINGSTON TRIAGE Triage time 10:39 Jun 04 2016. Acuity: LEVEL 4. Alert. No acute distress. --10:46 Ameena Narvaez R.N. 10:39 06/04/16. BP: 127/69. HR: 78. RR: 18. O2 saturation: 100%. Temp: 98.2 F. Pain level now 0/10. --10:46 Ameena Narvaez R.N. Chief Complaint: SKIN RASH. --11:56 Ameena Narvaez R.N. Weight: 63.5 kg stated. Height/Length: 67 inches Per Patient. BMI: 21.9. --10:38 Ameena Narvaez R.N. Medications Ibuprofen Oral 600 mg, 4x a day. Tylenol Oral 500mg, 4x a day as needed. --10:41 Ameena Narvaez R.N. Allergies No Known Drug Allergy. --10:41 Ameena Narvaez R.N. Medication/allergy information source: the patient. --10:46 Ameena Narvaez R.N. History Arrived by private vehicle. Historian: patient. Accompanied by family. Primary physician (Zach). ( Pt sent over by [facility] for concerns her packing is still in the right arm from a previous I&D. Had a I&D on the , was suppose to return in 24 hours for removal of packing, no show. Returned instead had it changed. On the , today, the wound healed over and pt presented today for packing to be removed. Concerned the packing is still in place. but unable to be seen by staff at the clinic.). Location - right arm. No fever. Treatment ASSISTANT DIRECTOR OF SECURITY: None. PAST MEDICAL HX: Immunizations: up-to-date. SOCIAL HX: Heavy tobacco smoker (cigarette)- 1 pack per day. Occasional alcohol use. History of IV drug use: heroin. FALL RISK ASSESSMENT: Fall risk assessment completed. No fall risk identified. NUTRITIONAL RISK ASSESSMENT: The nutritional risk assessment revealed no deficiencies. FUNCTIONAL ASSESSMENT: Functional assessment: no impairments noted. LEARNING NEEDS ASSESSMENT: The learning needs assessment revealed no barriers. SKIN INTEGRITY ASSESSMENT: Skin integrity risk assessment completed. No skin integrity risk identified. --10:46 Ameena Narvaez R.N. PROBLEMS: Cellulitis. Abscess. --10:42 Ameena Narvaez R.N. ADDITIONAL SURGERIES: Incision and drainage of abscess. --10:42 Ameena Narvaez R.N. Interventions ID band on patient. To room. --10:46 Ameena Narvaez R.N. PHYSICAL ASSESSMENT Ambulatory to room. GENERAL / NEURO / PSYCH: The patient does not appear to be in acute distress. CVS: Capillary refill less than 2 seconds. SKIN: Skin is warm and dry. ( open wound, draining clear and scant blood. It is currently numb from previous Tx from Clinic, not painful.). --11:52 Ameena Narvaez R.N. NURSING PROGRESS NOTES ( Dry Dressing applied to the Right Upper Bicep). --11:54 Ameena Narvaez R.N. DISPOSITION / DISCHARGE Departure time: 11:55 Jun 04 2016. Condition at departure: stable. No learning barriers present. Discharge instructions provided and reviewed with the patient. Patient verbalized understanding. Written instructions provided in Turkmen. No medication instructions. The patient was discharged by the physician. She was discharged home and accompanied by huc. She left the Emergency Department ambulatory. Train Dispatcher driving. --11:55 Ameena Narvaez R.N. Locked/Released at 06/07/2016 8:55 by Fabi An R.N.
--- NOTE | 2016-06-07 08:55 | ED MAR SUMMARY ---
..... Medication Administration Record [facility] [address] [place] [id number] Patient: RALPH LIVINGSTON Maria Visit ID: [id number] 40y, F Weight: 63.5 kg Height/Length: 67 in BMI: 21.9 ALLERGIES: No Known Drug Allergy
--- NOTE | 2016-06-07 08:55 | ED DISCHARGE INSTRUCTIONS ---
Patient: ARLPH LIVINGSTON General Instructions [facility] VisitID: [id number] [place] [address] 40y, F Registration Date/Time: 06/04/2016 Abscess to the right upper extremity. Chronic substance abuse- tobacco (cigarettes), heroin. No intoxication, hallucinations, perceptual disturbances or drug induced psychotic disorder or mood disorder. Single superficial laceration to the right shoulder.No foreign body present. INSTRUCTIONS Do not smoke. Seek medical help to quit smoking. (You may need additional procedures or imaging (nonemergently) as needed if not much better as expected). Warnings: Further evaluation is necessary. INFECTION: Watch for signs of infection (increasing heat and redness, pus-like drainage, swelling, or increased pain). Return or see your doctor if these signs occur. GENERAL WARNINGS: Return or contact your physician immediately if your condition worsens or changes unexpectedly, if not improving as expected, or if other problems arise. Your Current Medications: CONTINUE TAKING THE FOLLOWING MEDICATIONS: Ibuprofen Oral : 600 mg 4x a day. Tylenol Oral : 500mg 4x a day, prn. Follow-up with: [facility], , [address] [place] [address], [place] [address] Follow up Monday as scheduled. ADDITIONAL INFORMATION Abscess [Incision & Drainage] An abscess (sometimes called a boil) occurs when bacteria get trapped under the skin and begin to grow. Pus forms inside the abscess as the body responds to the bacteria. An abscess can occur with an insect bite, ingrown hair, blocked oil gland, pimple, cyst, or puncture wound. Treatment of your abscess has required an incision to drain the pus. If the abscess pocket was large, a gauze packing may have been inserted. This will need to be removed and possibly replaced on your next visit. Antibiotics are not required in the treatment of a simple abscess, unless the infection is spreading into the skin around the wound (known as cellulitis). Healing of the wound will take about one to two weeks depending on the size of the abscess. Healthy tissue will grow from the bottom and sides of the opening until it seals over. Home Care: The wound may drain for the first two days. Cover the wound with a clean dry dressing. If the dressing becomes soaked with blood or pus, change it. If a gauze packing was placed inside the abscess cavity, you may be advised to remove it yourself. You may do this in the shower. Once the packing is removed, you should wash the area in the shower or bath 3 to 4 times a day, until the skin opening has closed. If you were prescribed antibiotics, take them as directed until they are all gone. You may use acetaminophen (Tylenol) or ibuprofen (Motrin, Advil) to control pain, unless another pain medicine was prescribed. [ NOTE: If you have liver disease or ever had a stomach ulcer, talk with your doctor before using these medicines.] Follow Up with your doctor as advised by our staff. If a gauze packing was inserted in your wound, it should be removed in 1-2 days. Check your wound every day for the signs of worsening infection listed below. Get Prompt Medical Attention if any of the following occur: Increasing redness or swelling Red streaks in the skin leading away from the wound Increasing local pain or swelling Continued pus draining from the wound two days after treatment Fever of 100.4F (38C) or higher, or as directed by your healthcare provider Opiate Abuse Use and abuse of heroin or prescription pain medicines (Vicodin, codeine) may lead to physical ADDICTION or psychological DEPENDENCE. Once this occurs, you are at greater risk for any of the following: - Craving for the drug and unable to stop using the drug even though you think you want to stop (psychological dependence) - Drug withdrawal symptoms if you stop taking the drug (physical addiction) - Loss of your job or your family - Arrest, conviction and assisted sentence for possession of an illegal substance or for driving under the influence of such a substance - Accidental injuries to yourself or others while you are under the influence of the drug (in a car or at home). - HIV infection (much greater risk if you use IV drugs) - Other sexually transmitted diseases (Herpes, chlamydia, gonorrhea and others) - Severe and fatal infection of the heart valves (if you use IV drugs) - Stroke, heart attack, hepatitis B or C, kidney failure - from overdose Home Care: 1) Admit you have a drug problem. Ask for help from your family and close friends. 2) Seek professional help. This could be individual psychotherapy, counseling, or a drug treatment program (outpatient or residential). 3) Join a self-help group for drug abuse. 4) Avoid friends who abuse drugs themselves or tempt you to continue your habit 5) Eat a balanced diet and begin a regular exercise program. Follow Up with your doctor or as advised by our staff. Contact one of the resources below for help. National [place] on Alcoholism and Drug Dependence, www.ncadd.org 002-889-KULV Narcotics Anonymous (check your phone book for a local listing or call 875-362-2487) www.na.org National Alcohol and Substance Abuse Information Center (for referral to treatment programs) Www.AddictionPaymentWorks 340-382-7388 Get Prompt Medical Attention if any of the following occur: -- Symptoms of withdrawal (agitation, anxiety, trembling, sweats, diarrhea, unable to sleep) -- Chest pain -- Unexplained fever over 100.4 F (38.0 C) -- Excessive drowsiness or inability to be awakened -- Slow breathing under 8 breaths per minute -- Shortness of breath or cough with colored sputum -- Redness, swelling or tenderness at an injection site Laceration(Skin Glue) A laceration is a cut through the skin. You have a laceration that has been closed with a type of skin glue. Home Care Medications: Acetaminophen (Tylenol) or ibuprofen (Motrin, Advil) may be taken for pain, unless another pain medicine was prescribed. NOTE: If you have chronic liver or kidney disease or ever had a stomach ulcer or GI bleeding, talk with your doctor before using these medications. General Care: Keep the wound clean and dry. You may shower or bathe as usual, but do not use soaps, lotions, or ointments on the wound area. Do not scrub the wound. After bathing, pat the wound dry with a soft towel. If a bandage was applied and it becomes wet or dirty, replace it. Otherwise, change the bandage every 24 hours. Do not scratch, rub, or pick at the film. Do not place tape directly over the film. Do not apply liquids (such as peroxide), ointments, or creams to the wound while the film is in place. Most skin wounds heal without problems. However, an infection sometimes occurs despite proper treatment. Therefore, watch for the signs of infection listed below. Follow Up as directed by the doctor or our staff. The skin glue film will fall off naturally in 5 to 10 days. Get Prompt Medical Attention if any of the following occur: Signs of infection: Fever of 100.4F (38C) or higher, or as directed by your healthcare provider Increasing pain in the wound Increasing redness or swelling Pus coming from the wound Wound bleeds more than a small amount or bleeding doesnt stop Wound edges come apart You feel numbness or weakness in the wound area that doesnt go away How To Quit Smoking Smoking is one of the hardest habits to break. About half of all those who have ever smoked have been able to quit, and most of those (about 70%) who still smoke want to quit. Here are some of the best ways to stop smoking. Keep Trying: It takes most smokers about 8 tries before they are finally able to fully quit. So, the more often you try and fail, the better your chance of quitting the next time! So, don't give up! Go Cold [place]: Most ex-smokers quit cold turkey. Trying to cut back gradually doesn't seem to work as well, perhaps because it continues the smoking habit. Also, it is possible to fool yourself by inhaling more while smoking fewer cigarettes. This results in the same amount of nicotine in your body! Get Support: Support programs can make an important difference, especially for the heavy smoker. These groups offer lectures, methods to change your behavior and peer support. Call the free national Quitline for more information. 050-GVCD-EXQ (523-591-6772). Low-cost or free programs are offered by many hospitals, local chapters of the [place] [employer] (848-131-5690) and the [place] [employer] (363-503-8828). Support at home is important too. Non-smokers can help by offering praise and encouragement. If the smoker fails to quit, encourage them to try again! Dgdf-Tkp-Jiblyjl Medicines: For those who can't quit on their own, Nicotine Replacement Therapy (NRT) may make quitting much easier. Certain aids such as the nicotine patch, gum and lozenge are available without a prescription. However, it is best to use these under the guidance of your doctor. The skin patch provides a steady supply of nicotine to the body. Nicotine gum and lozenge gives temporary bursts of low levels of nicotine. Both methods take the edge off the craving for cigarettes. WARNING: If you feel symptoms of nicotine overdose, such as nausea, vomiting, dizziness, weakness, or fast heartbeat, stop using these and see your doctor. Prescription Medicines: After evaluating your smoking patterns and prior attempts at quitting, your doctor may offer a prescription medicine such as bupropion (Zyban, Wellbutrin), varenicline (Chantix, Champix), a niocotine inhaler or nasal spray. Each has its unique advantage and side effects which your doctor can review with you. Health Benefits Of Quitting: The benefits of quitting start right away and keep improving the longer you go without smokin minutes: blood pressure and pulse return to normal 8 hours: oxygen levels return to normal 2 days: ability to smell and taste begins to improve as damaged nerves start to regrow 2-3 weeks: circulation and lung function improves 1-9 months: decreased cough, congestion and shortness of breath; less tired 1 year: risk of heart attack decreases by half 5 years: risk of lung cancer decreases by half; risk of stroke becomes the same as a non-smoker For information about how to quit smoking, visit the following links: National Cancer [place] , Clearing the Air, Quit Smoking Today - an online booklet. http://www.smokefree.gov/pubs/clearing_the_air.pdf Smokefree.gov http://smokefree.gov/ QuitNet http://www.quitnet.com/ You have been given the following additional information: Abscess, Incision And Drainage Opiate Abuse Laceration, Extremity (Skin Glue) Smoking Cessation (Electronically signed by Jaswinder Avina DO 06/05/2016 16:06)
--- NOTE | 2016-06-07 08:55 | ED MED RECONCILIATION SUMMARY ---
Patient: PIPPA LIVINGSTONECCA Maria Medication Reconciliation Report [facility] VisitID: [id number] [address] [place] [address] 40y, F Registration Date/Time: 06/04/2016 Weight: 63.5 kg Height/Length: 67 in. BMI: 21.9 ALLERGIES: No Known Drug Allergy The patient's Home Medications are listed below: CONTINUE TAKING THE FOLLOWING MEDICATIONS: Ibuprofen Oral 600 mg, 4x a day Tylenol Oral 500mg, 4x a day The source(s) of the original Home Medication information: patient The following Medications were given to the patient in the Emergency Department: None. The following Medications were prescribed to the patient: None.
--- NOTE | 2016-06-07 08:55 | ED MAR SUMMARY ---
..... Medication Administration Record [facility] [address] [place] [id number] Patient: RALPH LIVINGSTON Maria Visit ID: [id number] 40y, F Weight: 63.5 kg Height/Length: 67 in BMI: 21.9 ALLERGIES: No Known Drug Allergy
--- NOTE | 2016-06-07 08:55 | ED MED RECONCILIATION SUMMARY ---
Patient: PIPPA LIVINGSTONECCA Maria Medication Reconciliation Report Formerly [facility] VisitID: [id number] [address] [place] [address] 40y, F Registration Date/Time: 06/04/2016 Weight: 63.5 kg Height/Length: 67 in. BMI: 21.9 ALLERGIES: No Known Drug Allergy The patient's Home Medications are listed below: CONTINUE TAKING THE FOLLOWING MEDICATIONS: Ibuprofen Oral 600 mg, 4x a day Tylenol Oral 500mg, 4x a day The source(s) of the original Home Medication information: patient The following Medications were given to the patient in the Emergency Department: None. The following Medications were prescribed to the patient: None.
--- NOTE | 2016-06-07 08:55 | ED DISCHARGE INSTRUCTIONS ---
Patient: RALPH LIVINGSTON General Instructions [facility] VisitID: [id number] [place] [address] 40y, F Registration Date/Time: 06/04/2016 Abscess to the right upper extremity. Chronic substance abuse- tobacco (cigarettes), heroin. No intoxication, hallucinations, perceptual disturbances or drug induced psychotic disorder or mood disorder. Single superficial laceration to the right shoulder.No foreign body present. INSTRUCTIONS Do not smoke. Seek medical help to quit smoking. (You may need additional procedures or imaging (nonemergently) as needed if not much better as expected). Warnings: Further evaluation is necessary. INFECTION: Watch for signs of infection (increasing heat and redness, pus-like drainage, swelling, or increased pain). Return or see your doctor if these signs occur. GENERAL WARNINGS: Return or contact your physician immediately if your condition worsens or changes unexpectedly, if not improving as expected, or if other problems arise. Your Current Medications: CONTINUE TAKING THE FOLLOWING MEDICATIONS: Ibuprofen Oral : 600 mg 4x a day. Tylenol Oral : 500mg 4x a day, prn. Follow-up with: [facility] [place], , [address] [place] [address], [place] [address] Follow up Monday as scheduled. ADDITIONAL INFORMATION Abscess [Incision & Drainage] An abscess (sometimes called a boil) occurs when bacteria get trapped under the skin and begin to grow. Pus forms inside the abscess as the body responds to the bacteria. An abscess can occur with an insect bite, ingrown hair, blocked oil gland, pimple, cyst, or puncture wound. Treatment of your abscess has required an incision to drain the pus. If the abscess pocket was large, a gauze packing may have been inserted. This will need to be removed and possibly replaced on your next visit. Antibiotics are not required in the treatment of a simple abscess, unless the infection is spreading into the skin around the wound (known as cellulitis). Healing of the wound will take about one to two weeks depending on the size of the abscess. Healthy tissue will grow from the bottom and sides of the opening until it seals over. Home Care: The wound may drain for the first two days. Cover the wound with a clean dry dressing. If the dressing becomes soaked with blood or pus, change it. If a gauze packing was placed inside the abscess cavity, you may be advised to remove it yourself. You may do this in the shower. Once the packing is removed, you should wash the area in the shower or bath 3 to 4 times a day, until the skin opening has closed. If you were prescribed antibiotics, take them as directed until they are all gone. You may use acetaminophen (Tylenol) or ibuprofen (Motrin, Advil) to control pain, unless another pain medicine was prescribed. [ NOTE: If you have liver disease or ever had a stomach ulcer, talk with your doctor before using these medicines.] Follow Up with your doctor as advised by our staff. If a gauze packing was inserted in your wound, it should be removed in 1-2 days. Check your wound every day for the signs of worsening infection listed below. Get Prompt Medical Attention if any of the following occur: Increasing redness or swelling Red streaks in the skin leading away from the wound Increasing local pain or swelling Continued pus draining from the wound two days after treatment Fever of 100.4F (38C) or higher, or as directed by your healthcare provider Opiate Abuse Use and abuse of heroin or prescription pain medicines (Vicodin, codeine) may lead to physical ADDICTION or psychological DEPENDENCE. Once this occurs, you are at greater risk for any of the following: - Craving for the drug and unable to stop using the drug even though you think you want to stop (psychological dependence) - Drug withdrawal symptoms if you stop taking the drug (physical addiction) - Loss of your job or your family - Arrest, conviction and half-way sentence for possession of an illegal substance or for driving under the influence of such a substance - Accidental injuries to yourself or others while you are under the influence of the drug (in a car or at home). - HIV infection (much greater risk if you use IV drugs) - Other sexually transmitted diseases (Herpes, chlamydia, gonorrhea and others) - Severe and fatal infection of the heart valves (if you use IV drugs) - Stroke, heart attack, hepatitis B or C, kidney failure - from overdose Home Care: 1) Admit you have a drug problem. Ask for help from your family and close friends. 2) Seek professional help. This could be individual psychotherapy, counseling, or a drug treatment program (outpatient or residential). 3) Join a self-help group for drug abuse. 4) Avoid friends who abuse drugs themselves or tempt you to continue your habit 5) Eat a balanced diet and begin a regular exercise program. Follow Up with your doctor or as advised by our staff. Contact one of the resources below for help. National [place] on Alcoholism and Drug Dependence, www.ncadd.org 244-095-TKUY Narcotics Anonymous (check your phone book for a local listing or call 037-168-7324) www.na.org National Alcohol and Substance Abuse Information Center (for referral to treatment programs) Www.AddictionJNS [employer] 247-561-9968 Get Prompt Medical Attention if any of the following occur: -- Symptoms of withdrawal (agitation, anxiety, trembling, sweats, diarrhea, unable to sleep) -- Chest pain -- Unexplained fever over 100.4 F (38.0 C) -- Excessive drowsiness or inability to be awakened -- Slow breathing under 8 breaths per minute -- Shortness of breath or cough with colored sputum -- Redness, swelling or tenderness at an injection site Laceration(Skin Glue) A laceration is a cut through the skin. You have a laceration that has been closed with a type of skin glue. Home Care Medications: Acetaminophen (Tylenol) or ibuprofen (Motrin, Advil) may be taken for pain, unless another pain medicine was prescribed. NOTE: If you have chronic liver or kidney disease or ever had a stomach ulcer or GI bleeding, talk with your doctor before using these medications. General Care: Keep the wound clean and dry. You may shower or bathe as usual, but do not use soaps, lotions, or ointments on the wound area. Do not scrub the wound. After bathing, pat the wound dry with a soft towel. If a bandage was applied and it becomes wet or dirty, replace it. Otherwise, change the bandage every 24 hours. Do not scratch, rub, or pick at the film. Do not place tape directly over the film. Do not apply liquids (such as peroxide), ointments, or creams to the wound while the film is in place. Most skin wounds heal without problems. However, an infection sometimes occurs despite proper treatment. Therefore, watch for the signs of infection listed below. Follow Up as directed by the doctor or our staff. The skin glue film will fall off naturally in 5 to 10 days. Get Prompt Medical Attention if any of the following occur: Signs of infection: Fever of 100.4F (38C) or higher, or as directed by your healthcare provider Increasing pain in the wound Increasing redness or swelling Pus coming from the wound Wound bleeds more than a small amount or bleeding doesnt stop Wound edges come apart You feel numbness or weakness in the wound area that doesnt go away How To Quit Smoking Smoking is one of the hardest habits to break. About half of all those who have ever smoked have been able to quit, and most of those (about 70%) who still smoke want to quit. Here are some of the best ways to stop smoking. Keep Trying: It takes most smokers about 8 tries before they are finally able to fully quit. So, the more often you try and fail, the better your chance of quitting the next time! So, don't give up! Go Cold [place]: Most ex-smokers quit cold turkey. Trying to cut back gradually doesn't seem to work as well, perhaps because it continues the smoking habit. Also, it is possible to fool yourself by inhaling more while smoking fewer cigarettes. This results in the same amount of nicotine in your body! Get Support: Support programs can make an important difference, especially for the heavy smoker. These groups offer lectures, methods to change your behavior and peer support. Call the free national Quitline for more information. 321-XGWO-ATS (196-351-3417). Low-cost or free programs are offered by many hospitals, local chapters of the [place] [employer] (534-428-1417) and the [employer] [employer] (396-717-8371). Support at home is important too. Non-smokers can help by offering praise and encouragement. If the smoker fails to quit, encourage them to try again! Gunm-Rop-Yopwcav Medicines: For those who can't quit on their own, Nicotine Replacement Therapy (NRT) may make quitting much easier. Certain aids such as the nicotine patch, gum and lozenge are available without a prescription. However, it is best to use these under the guidance of your doctor. The skin patch provides a steady supply of nicotine to the body. Nicotine gum and lozenge gives temporary bursts of low levels of nicotine. Both methods take the edge off the craving for cigarettes. WARNING: If you feel symptoms of nicotine overdose, such as nausea, vomiting, dizziness, weakness, or fast heartbeat, stop using these and see your doctor. Prescription Medicines: After evaluating your smoking patterns and prior attempts at quitting, your doctor may offer a prescription medicine such as bupropion (Zyban, Wellbutrin), varenicline (Chantix, Champix), a niocotine inhaler or nasal spray. Each has its unique advantage and side effects which your doctor can review with you. Health Benefits Of Quitting: The benefits of quitting start right away and keep improving the longer you go without smokin minutes: blood pressure and pulse return to normal 8 hours: oxygen levels return to normal 2 days: ability to smell and taste begins to improve as damaged nerves start to regrow 2-3 weeks: circulation and lung function improves 1-9 months: decreased cough, congestion and shortness of breath; less tired 1 year: risk of heart attack decreases by half 5 years: risk of lung cancer decreases by half; risk of stroke becomes the same as a non-smoker For information about how to quit smoking, visit the following links: National Cancer [place] , Clearing the Air, Quit Smoking Today - an online booklet. http://www.smokefree.gov/pubs/clearing_the_air.pdf Smokefree.gov http://smokefree.gov/ QuitNet http://www.quitnet.com/ You have been given the following additional information: Abscess, Incision And Drainage Opiate Abuse Laceration, Extremity (Skin Glue) Smoking Cessation (Electronically signed by Jaswinder Avina DO 06/05/2016 16:06)
== END 2016-06-04 11:50 | disposition home or self-care (01) ==
LOC: ED SRH 10:29
DX: L02.413 Cutaneous abscess of right upper limb (principal); S41.011A Laceration without foreign body of right shoulder, initial encounter; X58.XXXA Exposure to other specified factors, initial encounter; Y92.9 Unspecified place or not applicable; Y99.9 Unspecified external cause status; Y93.9 Activity, unspecified; F11.10 Opioid abuse, uncomplicated; F17.210 Nicotine dependence, cigarettes, uncomplicated